=== PATIENT | female | born 1945 | race Caucasian/White ===

== ENCOUNTER 2019-05-09 15:57 | Inpatient (IN) ==
[2019-05-09] MEDS ORDERED: Ondansetron ODT 4 MG TAB.RAPDIS PO PRN (20:01)
[2019-05-09] MEDS ORDERED: Melatonin 3 MG TABLET PO PRN (20:01)
[2019-05-09] MEDS ORDERED: *HR* OxyCODONE Immed Rel 5 MG TABLET PO PRN (20:01)
[2019-05-09] MEDS ORDERED: Sennosides 8.6 MG TABLET PO PRN (20:01)
[2019-05-09] MEDS ORDERED: Mag Hydrox/Al Hydrox/Simeth 30 ML UDC PO PRN (20:01)
[2019-05-09] MEDS: Famotidine 20 MG TABLET PO SCH (21:17)
[2019-05-09] MEDS: *HR* OxyCODONE Immed Rel 5 MG TABLET PO PRN (21:18)
[2019-05-10] MEDS: *HR* OxyCODONE Immed Rel 5 MG TABLET PO PRN ×4 (02:15→20:15)
[2019-05-10] MEDS: tiZANidine 4 MG TABLET PO PRN ×2 (06:00→15:31)
[2019-05-10 07:39] LABS: Basophils # 0.1 K/mcL (0.0-0.2); Basophils % 0.9 %; Eosinophils # 0.2 K/mcL (0.0-0.6); Eosinophils % 3.8 %; Hematocrit 27.5 % (35.3-44.9); Hemoglobin 9.4 g/dL (11.5-15.4); Immature Granulocytes % 0.9 % (0-4); Lymphocytes # 1.1 K/mcL (0.6-4.6); Lymphocytes % 19.6 %; Mean Corpuscular HGB Conc 34.2 g/dL (31.6-35.5); Mean Corpuscular Hemoglobin 31.6 pg (28.0-33.3); Mean Corpuscular Volume 92.6 fL (83.0-100.0); Monocytes # 0.7 K/mcL (0.0-1.3); Monocytes % 11.5 %; Neutrophils # 3.6 K/mcL (1.6-8.9); Platelet Count 203 K/mcL (140-400); Red Blood Count 2.97 M/mcL (3.82-4.97); Red Cell Distribution Width 13.2 % (11.5-14.5); Segmented Neutrophils % 63.3 %; White Blood Count 5.7 K/mcL (4.3-11.1)
[2019-05-10 07:41] LABS: Prothrombin Time 11.1 Seconds (9.4-12.1)
[2019-05-10 07:43] LABS: Activated Partial Thrombo Time 28.7 Seconds (26.0-36.0)
[2019-05-10 07:52] LABS: Alanine Aminotransferase 23 Units/L (7-52); Albumin 3.3 g/dL (3.5-5.7); Albumin/Globulin Ratio 1.6 (1.1-2.2); Alkaline Phosphatase 170 Units/L (34-104); Aspartate Amino Transferase 24 Units/L (13-39); BUN/Creatinine Ratio 14 (6-26); Bilirubin,Total 0.7 mg/dL (0.3-1.0); Blood Urea Nitrogen 11 mg/dL (8-23); Calcium 8.9 mg/dL (8.6-10.3); Carbon Dioxide 28 mEq/L (23-29); Chloride 101 mEq/L (98-107); Globulin 2.1 g/dL (2.4-3.5); Glucose 113 mg/dL (70-105); Magnesium 2.1 mg/dL (1.6-2.6); Osmolality,Calculated 278 (280-300); Potassium 4.1 mEq/L (3.5-5.1); Sodium 134 mEq/L (136-145); Total Protein 5.4 g/dL (6.4-8.9); eGFR For African Americans > 60 (> 60); eGFR For Non-African Americans > 60 (> 60)
[2019-05-10] MEDS: *HR* Enoxaparin 40 MG/0.4 ML SYRINGE SQ SCH (07:52)
[2019-05-10] MEDS: Aspirin Enteric Coated 81 MG Tablet PO SCH (07:52)
[2019-05-10] MEDS: Famotidine 20 MG TABLET PO SCH ×2 (07:52→20:14)
[2019-05-10] MEDS: Folic Acid 1 MG TABLET PO SCH (07:53)
[2019-05-10] MEDS ORDERED: FOLIC ACID 0.4 MG PO SCH (09:00)
[2019-05-11] MEDS: tiZANidine 4 MG TABLET PO PRN (01:03)
[2019-05-11] MEDS: *HR* OxyCODONE Immed Rel 5 MG TABLET PO PRN ×4 (03:14→21:29)
[2019-05-11] MEDS: Famotidine 20 MG TABLET PO SCH ×2 (08:02→20:10)
[2019-05-11] MEDS: Folic Acid 1 MG TABLET PO SCH (08:02)
[2019-05-11] MEDS: Aspirin Enteric Coated 81 MG Tablet PO SCH (08:02)
[2019-05-11] MEDS: *HR* Enoxaparin 40 MG/0.4 ML SYRINGE SQ SCH (08:05)
[2019-05-12] MEDS ORDERED: cloNIDine HCl 0.1 MG TABLET PO PRN (00:06)
[2019-05-12] MEDS: *HR* OxyCODONE Immed Rel 5 MG TABLET PO PRN ×4 (03:32→20:25)
[2019-05-12] MEDS: Aspirin Enteric Coated 81 MG Tablet PO SCH (07:55)
[2019-05-12] MEDS: Folic Acid 1 MG TABLET PO SCH (07:55)
[2019-05-12] MEDS: tiZANidine 4 MG TABLET PO PRN ×2 (07:56→20:30)
[2019-05-12] MEDS: Famotidine 20 MG TABLET PO SCH ×2 (07:57→20:25)
[2019-05-12] MEDS: *HR* Enoxaparin 40 MG/0.4 ML SYRINGE SQ SCH (08:00)
[2019-05-13] MEDS: *HR* OxyCODONE Immed Rel 5 MG TABLET PO PRN ×2 (03:54→10:12)
[2019-05-13 09:03] VITALS: BP 170/72
[2019-05-13] MEDS: tiZANidine 4 MG TABLET PO PRN (09:28)
[2019-05-13] MEDS: Aspirin Enteric Coated 81 MG Tablet PO SCH (09:28)
[2019-05-13] MEDS: Folic Acid 1 MG TABLET PO SCH (09:28)
[2019-05-13] MEDS: Famotidine 20 MG TABLET PO SCH (09:28)
[2019-05-13] MEDS: *HR* Enoxaparin 40 MG/0.4 ML SYRINGE SQ SCH (09:29)
== END 2019-05-13 12:18 | disposition home health service (06) | DRG 560 ==
LOC: INPGRE 18:29